=== PATIENT | female | born 1980 | race Hispanic/Latino ===

== ENCOUNTER 2021-07-14 06:12 | Observation (INO) | payer OTHER ==
--- NOTE | 2021-07-08 10:41 | Anesthesia Consultation ---
Anesthesia Consult and Med Hx Date of service: 07/08/21 - Airway Anesthetic Teeth Evaluation: Good ROM Head & Neck: Adequate Mental/Hyoid Distance: Adequate Mallampati Class: Class II Intubation Access Assessment: Probably Good - Pre-Operative Health Status ASA Pre-Surgery Classification: ASA2 Proposed Anesthetic Plan: General - Pulmonary Hx Smoking: No Hx Sleep Apnea: No (SNORES SOMETIMES) - Cardiovascular System Hx Hypertension: No Hx Heart Attack/AMI: No - Central Nervous System Hx Psychiatric Problems: No - Gastrointestinal Hx Gastroesophageal Reflux Disease: Yes (takes OTC meds, not always under control) - Hematic Hx Anemia: No Hx Sickle Cell Disease: No - Other Systems Hx Alcohol Use: No Hx Substance Use: No Hx Cancer: No - Additional Comments Anesthesia Medical History Comments: symptomatic uterine fibroids
[2021-07-08 10:59] LABS: Blood Urea Nitrogen 9 mg/dL (7-17); Hemolysis Index 3
[2021-07-08 11:08] LABS: BUN/Creatinine Ratio 15
[2021-07-08 11:50] LABS: Basophils % (Auto) 0.5 % (0.0-1.8); Eosinophils # (Auto) 0.2 K/mm3 (0.0-0.4); Eosinophils % (Auto) 2.5 % (0.0-4.3); Lymphocytes # (Auto) 1.9 K/mm3 (1.2-5.4); Mean Corpuscular HGB Conc 33 % (30-34); Mean Corpuscular Volume 87 fl (79-97); Monocytes # (Auto) 0.4 K/mm3 (0.0-0.8); Monocytes % (Auto) 5.3 % (0.0-7.3); Platelet Count 237 K/mm3 (140-440); Red Blood Count 4.84 M/mm3 (3.65-5.03); Red Cell Distribution Width 13.1 % (13.2-15.2)
--- NOTE | 2021-07-12 19:38 | History and Physical Report ---
History of Present Illness Date of examination: 07/13/21 Date of admission: 07/14/21 Chief complaint: heavy bleeding. fibroids. pain History of present illness: Pt presents with increased in menstrual bleeding with passage of clots and more pelvic pain while taking ocps. Sono showed fibroids. Pt desires definitive therapy via hystrectomy. All risk, benefits and alternatives were d/w pt and questions were addressed and answered. LAVH with BS is planned procedure. Visit Type: Pre-Op CC: no complaints. History of Present Illness: Pt presents for Pre-Op for LAVH. No c/o. .....................................................................Syeda Cade July 13, 2021 1:59 PM mask,Patient denies fever, cough, shortness of breath and exposure to COVID-19. Pt present for pre op for LAVH with BS. All risk/benefits/alternatives were d/w pt and questions were addressed and answered. Consents signed and placed on the chart. Risk discused but not limtied to were bleeding, infection, injury to bladder, bowel uterus tubes, ovearies, risk of transfusion, need for additional surgery and laporatomy. Pt given ample time to ask questions. All of which were answered. Consent signed and placed on the chart. Vital Signs: Patient Profile: 40 Years Old Female LMP: 06/2021 Height: 68.25 inches Weight: 208 pounds BMI: 31.39 Temp: 98.1 degrees F BP sittin / 72 Menstrual History: LMP (date): 06/2021 Past History : 2 Term Births: 2 Living Children: 2 Para: 2 Aborta: 0 [employer]SIDE SALES [employer] History Uterine Surgery (not C/S): negative Operations: Cholecystectomy Hospitalizations: negative Anesthesia Complications: negative Abnormal PAP: negative Uterine Anomaly: negative SOPHIE Exposure: negative Infertility: negative Infection History HIV Risk Eval: no Hep B Immunized: yes Active Medications (reviewed today): Microgestin 1/20 (21) 1-20 mg-mcg tablet (norethindrone ac-eth estradiol) Take 1 tablet by mouth once a day Current Allergies (reviewed today): No known allergies Past Medical History: Reviewed history from 05/14/2011 and no changes required: Negative Past Medical History Past Surgical History: Reviewed and updated today: Cholecystectomy Social History: Patient is Smoking History: Patient has never smoked. Risk Factors: Smoked Tobacco Use: Never smoker Smokeless Tobacco Use: Never Passive Smoke Exposure: no HIV High Risk Behavior: no Exercise: yes Seatbelt Use: 100 % Review of Systems General Denies fever, chills, sweats, anorexia, fatigue, weakness, malaise, weight loss and sleep disorder. Denies nausea, vomiting, headache, swelling of legs, abdominal pain, vaginal discharge, vaginal bleeding and contractions. Complains of menorrhagia. Denies vaginal discharge, incontinence, dysuria, hematuria, urinary frequency, amenorrhea, abnormal vaginal bleeding, pelvic pain, genital sores, d ecreased libido, painful periods, painful sex, urinary urgency, hot flashes, vaginal dryness, vaginal itching and vaginal odor. CV Denies chest pains, palpitations, syncope, dyspnea on exertion, orthopnea, PND and peripheral edema. Resp Denies cough, dyspnea at rest, excessive sputum, hemoptysis, wheezing and pleurisy. GI Denies nausea, vomiting, diarrhea, constipation, change in bowel habits, abdominal pain, melena, hematochezia, jaundice, gas/bloating, indigestion/heartburn, dysphagia and odynophagia. Endo Denies cold intolerance, heat intolerance, polydipsia, polyphagia, polyuria and unusual weight change. Breast Denies left breast lump, right breast lump, nipple discharge, bloody discharge from nipple, breast pain, abnormal mammogram and breast enlargement. MS Denies back pain, joint pain, joint swelling, muscle cramps, muscle weakness, stiffness, arthritis, sciatica, restless legs, leg pain at night and leg pain with exertion. Derm Denies rash, itching, dryness and suspicious lesions. Neuro Denies paralysis, paresthesias, headache, seizures, tremors, vertigo, transient blindness, frequent falls, frequent headaches and difficulty walking. Psych Denies depression, anxiety, irritability and mood swings. Eyes Denies blurring, diplopia, irritation, discharge, vision loss, eye pain and photophobia. ENT Denies earache, ear discharge, tinnitus, decreased hearing, nasal congestion, nosebleeds, sore throat and hoarseness. Allergy Denies urticaria, allergic rash, hay fever and recurrent infections. Heme Denies abnormal bruising, bleeding and enlarged lymph nodes. [Labs In-House] Physical Exam Appearance: well developed, well nourished, no acute distress Other Exams Lungs: no rales, rhonchi, or wheezes Heart: S1, S2, no murmur, rub, or gallop Abdomen: soft, non-tender, no masses, bowel sounds normal Extremities: normal alignment, no joint enlargement, crepitus, masses or tenderness; normal tone and strength Genitourinary Exam Comments: deferred until EUA Past History Past Medical History: no pertinent history, other (fibroids) Past Surgical History: cholecystectomy [employer] History: denies: abnormal PAP smear Family/Genetic History: denies: none Social history: denies: no significant social history - Obstetrical History : 2 Para: 2 Number of Living Children: 2 Medications and Allergies Allergies Allergy/AdvReac Type Severity Reaction Status Date / Time No Known Allergies Allergy Unverified 07/06/21 13:39 Home Medications Medication Instructions Recorded Confirmed Last Taken Type Control Pill 1 dose PO DAILY 07/06/21 Unknown History Cbd Gummies 1 dose PO HS 07/06/21 Unknown History Active Meds: Active Medications Acetaminophen (Acetaminophen 500 Mg Tab) 1,000 mg PO PREOP SALINAS Stop: 07/14/21 16:00 Celecoxib (Celecoxib 200 Mg Cap) 200 mg PO PREOP NR Stop: 07/14/21 16:00 Famotidine (Famotidine 20 Mg/2 Ml Inj) 20 mg IV PREOP NR Stop: 07/14/21 13:00 Fentanyl (Fentanyl 100 Mcg/2 Ml Inj) 100 mcg IV ONCE PRN PRN Reason: sedation for nerve block Stop: 07/14/21 16:00 Gabapentin (Gabapentin 300 Mg Cap) 300 mg PO PREOP NR Stop: 07/14/21 16:00 Lactated Ringer's (Lactated Ringers) 1,000 mls @ 100 mls/hr IV DIRECT SALINAS Cefazolin Sodium (Ancef/Sterile Water 2 Gm/20 Ml) 2 gm in 20 mls @ 80 mls/hr IV PREOP NR; Protocol Stop: 07/15/21 06:00 Midazolam HCl (Midazolam 2 Mg/2 Ml Inj) 2 mg IV PREOP NR Stop: 07/14/21 23:59 Scopolamine (Scopolamine Transdermal Patch 72 Hr) 1 each TD PREOP NR Stop: 07/14/21 16:00 Review of Systems All systems: negative - Vital Signs Vital signs: Vital Signs Temp Pulse Resp BP Pulse Ox 98.5 F 89 16 129/79 96 07/08/21 10:20 07/08/21 10:20 07/08/21 10:20 07/08/21 10:20 07/08/21 10:20 Temp Pulse Resp BP Pulse Ox 98.5 F 89 16 129/79 96 07/08/21 10:20 07/08/21 10:20 07/08/21 10:20 07/08/21 10:20 07/08/21 10:20 - Physical Exam Cardiovascular: Normal S1, Normal S2 Lungs: Positive: Clear to auscultation Abdomen: Positive: normal appearance, soft. Negative: distention, tenderness, guarding Genitourinary (Female): Positive: other (deferred until EUA) Results Result Diagrams: 07/08/21 08:36 07/08/21 08:36 All other labs normal. Assessment and Plan - Patient Problems (1) Fibroid Status: Acute (2) Menorrhagia with regular cycle Status: Acute Plan to address problem: to OR for above scheduled procedure consents singed and placed on the chart (3) Dysmenorrhea Status: Acute
[~2021-07-14 06:12] MED LIST: ACETAMINOPHEN 500 MG TAB PO SCH; CELECOXIB 200 MG CAP PO NR; GABAPENTIN 300 MG CAP PO NR; SCOPOLAMINE TRANSDERMAL PATCH 72 HR TD NR; ceFAZolin/Water 2 GM/20 ML 2 GM/20 ML SYRINGE IV NR; fentaNYL 100 MCG/2 ML INJ IV PRN
[2021-07-14] MEDS ORDERED: MIDAZOLAM 2 MG/2 ML INJ IV NR (07:00)
[2021-07-14] MEDS ORDERED: FAMOTIDINE 20 MG/2 ML INJ IV NR (07:00)
[2021-07-14] MEDS ORDERED: LIDOCAINE MPF (2%) 20 MG/1 ML VIAL 5 ML ONE (07:15)
[2021-07-14] MEDS ORDERED: ROCURONIUM 50 MG/5 ML INJ IV ONE ×2 (07:15→10:26)
[2021-07-14] MEDS ORDERED: propofoL 200 MG/20 ML VIAL IV ONE (07:15)
[2021-07-14] MEDS ORDERED: fentaNYL 100 MCG/2 ML INJ ONE (07:15)
[2021-07-14] MEDS ORDERED: KETAMINE/STERILE WATER 50 MG/ML SYRINGE ONE (07:15)
[2021-07-14] MEDS ORDERED: VASOPRESSIN 20 UNIT/1 ML INJ ONE (07:22)
[2021-07-14] MEDS ORDERED: BUPIVACAINE/PF (0.5%) 5 MG/1 ML 30 ML VIAL INFILTRATI ONE ×2 (07:22→09:55)
[2021-07-14] MEDS ORDERED: SODIUM CHLORIDE 0.9% 100 ML ONE (07:22)
--- NOTE | 2021-07-14 07:35 | Anesthesia Day of Surgery ---
Anesthesia Day of Surgery - Day of Surgery Patient Examined: Yes Patient H&P Reviewed: Yes Patient is NPO: Yes
[2021-07-14] MEDS ORDERED: ONDANSETRON 4 MG/2 ML INJ IV PRN (08:00)
[2021-07-14] MEDS ORDERED: HYDROmorphone 1 MG/1 ML INJ IV PRN ×2 (08:00)
[2021-07-14] MEDS ORDERED: ePHEDrine SULFATE 50 MG/1 ML INJ ONE (08:22)
[2021-07-14] MEDS ORDERED: ANTICOAGULANT SOD CITRATE SOLUTION MC ONE (09:54)
[2021-07-14] MEDS ORDERED: SODIUM CHLORIDE 0.9% IRR 1,500 ML BOTTLE IR ONE (09:55)
[2021-07-14] MEDS ORDERED: VASOPRESSIN 20 UNIT/1 ML INJ IM ONE (09:56)
[2021-07-14] MEDS ORDERED: SODIUM CHLORIDE 0.9% 100 ML IVPB IV ONE (09:56)
[2021-07-14] MEDS ORDERED: HYDROmorphone 1 MG/1 ML INJ ONE (10:20)
[2021-07-14] MEDS ORDERED: KETOROLAC 30 MG/1 ML INJ ONE (10:26)
[2021-07-14] MEDS ORDERED: ONDANSETRON 4 MG/2 ML INJ ONE (10:26)
[2021-07-14] MEDS ORDERED: GLYCOPYRROLATE 0.4 MG/2 ML INJ ONE (10:26)
[2021-07-14] MEDS ORDERED: dexAMETHasone 20 MG/5 ML VIAL ONE (10:26)
[2021-07-14] MEDS ORDERED: NEOSTIGMINE 10MG/10 ML INJ MDV ONE (10:26)
[2021-07-14] MEDS ORDERED: LACTATED RINGERS 1,000 ML ONE (10:26)
--- NOTE | 2021-07-14 10:46 | Operative Report ---
Operative Report Operative Report: Date of procedure: 07/14/2021 Pre-operative diagnosis: Fibroids Menorrhagia Post-operative diagnosis: Same Procedure name(s): Laparoscopic assisted vaginal hysterectomy Bilateral salpingectomy Surgeon: Fátima Ruiz MD Wire Coiler Machine Operator: Dr. Aleyda Witt Anesthesia: General endotracheal anesthesia EBL: 150 mL Urine output: 400 mL of clear urine out at the end of the procedure Fluids: 1100 mL Findings: Grossly normal fallopian tubes and ovaries bilaterally. Fibroid uterus approximately 10 weeks size. Normal cervix. Indications: Patient with a history of menorrhagia and fibroids desires definitive therapy after failed medical therapy. All risk benefits and alternatives were discussed with the patient. Consents were signed and placed on the chart. Procedure: Patient was taken to the operating room where she was placed under general endotracheal anesthesia. She was then prepped and draped in sterile fashion. It was at this point that the medium Monitoring Division uterine manipulator was placed inside of the uterus after the uterus was sounded to approximately 12 cm. Lanza catheter was also placed at this time. Attention was then turned to the umbilicus in which a supraumbilical incision was made. Under direct visualization the 5 mm trocar was placed inside the peritoneum the peritoneum was then insufflated. As at this point that the laparoscopic portion of the procedure was performed. 2 lateral 5 mm ports were also placed under direct visualization. Using the tripolar instrument the upper pedicles were cauterized and transected to the including round ligament with excellent hemostasis noted bilaterally. Attention was turned to the fallopian tubes bilaterally which were cauterized and transected and removed and handed off to pathology separately. Attention was then turned vaginally. A weighted speculum was placed into the vagina and the cervix was grasped with a single-tooth tenaculum 2. The cervix was then injected circumferentially with Pitressin. The cervix was then circumferentially incised with the scalpel and the bladder dissected off of the pubovesical cervical fascia anteriorly with a sponge stick and Metzenbaum scissors. The same procedure was performed posteriorly and the posterior cul-de-sac was entered into sharply without difficulty. At this point a Verónica Clamp was placed over the uterosacral ligaments on either side. These were then transected and suture ligated with 0 Vicryl. Hemostasis was assured. The cardinal ligaments were then clamped on both sides transected and suture ligated in similar fashion. The uterine arteries were then serially clamped with Verónica clamps transected and suture ligated on both sides. Excellent hemostasis was visualized. After it was clear that the uterus had been completely from all pedicles the uterus was removed vaginally intact with cervix intact. The vaginal cuff angles were closed with figure of 8 stitches of 0 Vicryl on both sides. The peritoneum was incorporated in the stitching of the vaginal cuff. A series of interrupted figure of 8 sutures using 0 Vicryl were used to close the entire vaginal cuff. Excellent hemostasis was noted. The vagina was then irrigated copiously. Attention was then turned laparoscopically at which time. Again all pedicles were noted to be hemostatic. The ureters were identified bilaterally with peristalsis noted bilaterally. All instruments were then removed from the abdomen and the vagina. All gas was released from the abdomen. The abdominal incisions were closed using 4-0 Monocryl. All of the abdominal incisions were injected with Marcaine without epi. Patient tolerated the procedure well sponge lap and needle counts were all correct 3 the patient was taken to the recovery room awake and in stable condition.
[2021-07-14] MEDS ORDERED: MAGNESIUM HYDROXIDE (MOM) ORAL LIQD UDC PO PRN (11:00)
[2021-07-14] MEDS ORDERED: ACETAMINOPHEN 325 MG TAB PO PRN (11:30)
[2021-07-14] MEDS ORDERED: KETOROLAC 30 MG/1 ML INJ IV PRN (11:30)
[2021-07-14] MEDS: MORPHINE 4 MG/1 ML INJ IV PRN ×2 (13:12→22:10)
[2021-07-14] MEDS: LACTATED RINGERS 1,000 ML IV SCH ×2 (13:23→22:16)
--- NOTE | 2021-07-14 16:23 | Post Anesthesia Evaluation ---
- Post Anesthesia Evaluation Patient Participated: Yes Airway Patent: Yes Stable Respiratory Function: Yes Nausea/Vomiting: No Temp > 96.8F: Yes Pain Manageable: Yes Adequeate Hydration: Yes Anesthesia Complications: No Block Receding Appropriately: Not Applicable Patient on Ventilator: No
[2021-07-14] MEDS: ceFAZolin/NS 1 GM/50 ML 1 GM/50 ML BAG IV SCH (16:42)
--- NOTE | 2021-07-14 17:21 | Event Note ---
Date: 07/14/21 Pt doing well. States she would like cath removed. 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 Order to be placed. Sx findings were d/w pt and questions were addressed and answered.
[2021-07-14] MEDS: HYDROcodone/ACETAMINOPHEN 5-325 MG TAB PO PRN (18:33)
[2021-07-15] MEDS: ceFAZolin/NS 1 GM/50 ML 1 GM/50 ML BAG IV SCH (00:35)
[2021-07-15] MEDS: IBUPROFEN 800 MG TAB PO PRN ×2 (05:34→14:47)
[2021-07-15 06:20] LABS: Hematocrit 36.5 % (30.3-42.9); Hemoglobin 12.2 gm/dl (10.1-14.3)
[2021-07-15] MEDS: HYDROcodone/ACETAMINOPHEN 5-325 MG TAB PO PRN (10:21)
--- NOTE | 2021-07-15 11:06 | Progress Note ---
Assessment and Plan - Patient Problems (1) Fibroid Current Visit: No Status: Acute (2) Menorrhagia with regular cycle Current Visit: No Status: Acute (3) Dysmenorrhea Current Visit: No Status: Acute (4) S/P laparoscopic assisted vaginal hysterectomy (LAVH) Current Visit: Yes Status: Acute Plan to address problem: -doing well -con't post op care -plan for d/c home this pm if remains AFVSS Subjective - Subjective Date of service: 07/15/21 Principal diagnosis: POD #1 s/o LAVH with BS Interval history: Pt doing well. c/o having some cramping pain and soreness relieved with po pain meds and IV morphine times on does. She does desire to be d/c today. She did tolerate soft diet last pm w/o nausea or ememsis. no flattus at this time.+ ambulation as well as spontaneous voiding since the cath removed with adequate UPO documented. Patient reports: appetite normal, voiding normally, pain well controlled, ambulating normally, no dizzy ambulation, no flatus, no bowel movement Objective - Vital Signs Latest vital signs: Vital Signs Temp Pulse Resp BP BP Pulse Ox 07/15/21 07:14 98.6 F 71 16 106/60 94 07/15/21 06:34 18 07/15/21 05:34 18 07/15/21 05:11 97.9 F 72 20 102/53 100 07/15/21 00:17 98.0 F 64 20 98/59 98 07/14/21 22:39 18 07/14/21 22:10 18 07/14/21 20:00 100 07/14/21 19:41 97.8 F 70 18 111/65 98 07/14/21 19:33 18 07/14/21 17:17 97.8 F 72 16 117/65 96 07/14/21 12:00 98.0 F 71 16 104/54 96 07/14/21 11:13 98.1 F 66 12 98/53 97 Intake and Output 07/14/21 07/15/21 07/15/21 22:59 06:59 14:59 Intake Total 1538.333 120 120 Output Total 1550 350 Balance -11.667 -230 120 Intake: IV 938.333 ANCEF/NS 1 GM/50 ML 1 gm 50 In 50 ml @ 100 mls/hr IV Q8H SALINAS Rx#:[id number] Lactated Ringers 1,000 ml 888.333 @ 100 mls/hr IV DIRECT SALINAS Rx#:[id number] Oral 240 120 Intake, Free Water 360 120 Output: Urine 1550 350 Indwelling Catheter 600 Void 950 350 Other: Total, Intake Amount 120 120 Total, Output Amount 550 350 Voiding Method Toilet # Voids Indwelling Catheter 1 Void 1 1 1 - Exam Cardiovascular: Present: Normal S1, Normal S2 Lungs: Present: Clear to auscultation, Normal air movement Abdomen: Present: normal appearance, soft, normal bowel sounds. Absent: distention, tenderness, guarding Extremities: Present: normal. Absent: tenderness, edema Deep Tendon Reflex Grade: Normal +2 Incision: Present: normal, dry, intact
--- NOTE | 2021-07-15 11:07 | Discharge Summary ---
Providers - Providers Date of Admission: 07/14/21 10:46 Date of discharge: 07/15/21 Attending physician: RAMAKRISHNA WILLOUGHBY Hospitalization Reason for admission: other (lavh with bs) Procedure: other (LAVH with BS) Procedure details: see op notes Incision: normal, dry, intact Hospital course: Pt admitted for LAVh and BS. She had procedure that was not complicated. Post op course was normal and not complicated. She will be d/c home today on pod#1. Pt will f/u in the office in 1 week. Disposition: 30 STILL A PATIENT - Discharge Diagnoses (1) Fibroid Status: Acute (2) Menorrhagia with regular cycle Status: Acute (3) Dysmenorrhea Status: Acute Plan - Discharge Medications Prescriptions: Docusate Sodium [Colace] 100 mg PO BID PRN #60 capsule PRN Reason: Constipation Ibuprofen [Motrin 800 MG tab] 800 mg PO Q8HR PRN #30 tablet PRN Reason: Pain, Moderate (4-6) oxyCODONE /ACETAMINOPHEN [Percocet 5/325] 1 tab PO Q4HR #10 tab - Provider Discharge Summary Activity: routine, no sex for 6 weeks, no heavy lifting 4 weeks Diet: routine Instructions: routine Additional instructions: [] Smoking cessation referral if applicable(refer to patient education folder for contact #) [] Refer to [facility]'s [facility] Center Booklet Call your doctor immediately for: * Fever > 100.5 * Heavy vaginal bleeding ( >1 pad per hour) * Severe persistent headache * Shortness of breath * Reddened, hot, painful area to leg or breast * Drainage or odor from incision. * Keep incision clean and dry at all times and follow doctor's instructions regarding bathing/showering Pt may shower and allow soap and water to wash over all incisions and allow to dry completely. - Follow up plan Follow up: EUGENIO VALENTIN [Other] - 7 Days RAMAKRISHNA WILLOUGHBY MD [Staff Physician] - 7 Days Forms: [facility] Discharge Summary
[2021-07-15 16:10] VITALS: BP 98/61
== END 2021-07-15 16:55 | disposition home or self-care (01) ==
LOC: OR 06:12 → OB 10:46
PROVIDERS: ADMIT Obstetrics & Gynecology; ATTEND Obstetrics & Gynecology
DX: N92.0 Excessive and frequent menstruation with regular cycle (principal); Z20.822 Contact with and (suspected) exposure to COVID-19; D25.9 Leiomyoma of uterus, unspecified; N94.6 Dysmenorrhea, unspecified; Z90.49 Acquired absence of other specified parts of digestive tract; Z79.899 Other long term (current) drug therapy; Z98.890 Other specified postprocedural states
CPT/HCPCS: 36415; 58552; 80048; 84703; 85014; 85018; 85025; 86850; 86900; 86901; 88302; 88307; 96365; 96366; 96375; 96376; G0378; G0379; J0690; J1100; J1170; J1815; J2250; J2270; J2405; J2704; J2710; J3010; J3490; J7120; U0003; J7121; J1885